=== PATIENT | male | born 1965 | race Hispanic/Latino ===

== ENCOUNTER 2021-12-27 00:27 | Inpatient (IN) ==
[2021-12-27] MEDS ORDERED: oxyCODONE/APAP 5/325MG TABLET PO PRN (23:39)
[2021-12-27] MEDS ORDERED: ONDANSETRON 4 MG/2 ML VIAL IV PRN (23:39)
[2021-12-27] MEDS ORDERED: ACETAMINOPHEN 325 MG TABLET PO PRN (23:40)
[2021-12-27] MEDS ORDERED: LABETALOL 5 MG/ML ML IV PRN (23:41)
[2021-12-28] MEDS ORDERED: ONDANSETRON 4 MG/2 ML VIAL ONE (03:09)
[2021-12-28] MEDS ORDERED: DEXTROSE 5% IV PRN (06:30)
[2021-12-28] MEDS ORDERED: WATER IV PRN (06:30)
[2021-12-28] MEDS ORDERED: VASOPRESSIN IV PRN (06:30)
[2021-12-28 06:32] LABS: Basophils # (Auto) 0.03 K/mcL (0.00-0.30); Basophils % (Auto) 0.3 % (0.0-2.0); Eosinophils # (Auto) 0 K/mcL (0.00-0.70); Eosinophils % (Auto) 0 % (0.0-7.0); Hematocrit 24.5 % (40.1-51.0); Hemoglobin 8.2 g/dL (13.7-17.5); Lymphocytes # (Auto) 0.29 K/mcL (1.50-4.80); Lymphocytes % (Auto) 2.9 % (15.5-49.0); Mean Cell Volume 102.9 fL (80.0-100.0); Mean Corpuscular HGB Conc 33.5 g/dL (31.0-36.0); Mean Platelet Volume 10.5 fL (7.4-10.4); Monocytes # (Auto) 0.22 K/mcL (0.10-0.90); Monocytes % (Auto) 2.2 % (1.0-12.0); Neutrophils % (Auto) 94.2 % (38.0-78.0); Platelet Count 186 K/mcL (140-440); RBC 2.38 M/mcL (4.63-6.08); Red Cell Distribution Width 12.2 % (11.5-14.5); WBC 10.2 K/mcL (4.5-11.0)
--- NOTE | 2021-12-28 06:44 | Nephrology Consult Note ---
HPI Data of Consult Patient: new to practice Consult date: 12/28/21 Requesting physician: Cole Linda Primary Care Provider: Other Provider Consult Narrative Patient Information: Note initiated : 12/28/21 at 6:35 am Service Date, if different from initiated Date: [] Patient: Tyler Harrington 56 y/o M admitted on 12/28/21 for Nausea/Vomiting, mi ssed Chemodialysis. Chief Complaint: [] Chief complaint: SOB Reason for consult: ESRD management cc:: CC: Cole Maddi 56 yr old male who presented to referring ED 12/27/2021 with SOB prior to his scheduled HD treatment. CXR with bilateral infiltrates and some hilar adenopathy. CoViD (+). Given Vanco and pip-mandy as well as 1 dose of paxlovid in ED. Demond Herman spoke to ED MD the patient is comfortable on high flow O2 at 10 L/min with O2 sats >90% whereas he was in the low 70's% on R/A. No Remdesavir, steroids, or MCAb had been given as of 10 pm. Plan to do daily HD today thru Monday while hospital medicine treats CoVID-19 PNA. Constitutional Constitutional: Absent fever(s) EENT Eyes: Present as per HPI Nose, mouth and throat: Absent headache(s) Cardiovascular Cardiovascular: Absent edema or rapid heart rate Respiratory Respiratory: Present as per HPI, dyspnea and dyspnea on exertion; Absent hemoptysis Gastrointestinal Gastrointestinal: Present as per HPI Genitourinary Genitourinary: as per HPI Neurological Neurological: Present as per HPI Psychiatric Psychiatric: Present as per HPI Endocrine Endocrine: Present as per HPI Hematologic/Lymphatic Hematologic/Lymphatic: Present other (anemia of ESRD) PFSH PFSH All Active Problems (Updated 12/28/21 @ 18:56 by Alfred Chowdhury MD) ESRD (end stage renal disease) on dialysis (Chronic) Pneumonia due to SARS-associated coronavirus (Acute) MEDS/ALLERGIES Home Medications and Allergies Home Medications Medication Instructions Recorded Confirmed Type amlodipine 10 mg tablet 1 tab PO QDAY 12/28/21 12/28/21 History atorvastatin 20 mg tablet 1 tab PO QDAY 12/28/21 12/28/21 History benazepril 20 mg tablet 1 tab PO QDAY 12/28/21 12/28/21 History calcium acetate(phosphat bind) 667 2 cap PO TID 12/28/21 12/28/21 History mg capsule hydralazine 100 mg tablet 1 tab PO TID 12/28/21 12/28/21 History metoprolol succinate 100 mg 1 tab PO QDAY 12/28/21 12/28/21 History tablet,extended release 24 hr sevelamer carbonate 800 mg tablet 1 tab PO TID 12/28/21 12/28/21 History Allergies Allergy/AdvReac Type Severity Reaction Status Date / Time No Known Allergies Allergy Verified 12/28/21 04:15 Physical Examination Vital Signs Vital signs: Temp Pulse Resp BP Pulse Ox 36.8 C 72 18 140/61 97 12/28/21 04:02 12/28/21 06:28 12/28/21 06:28 12/28/21 06:01 12/28/21 06:28 General Appearance General appearance: well-developed, well-nourished and chronically ill EENT EENT: ATNC and PERRL Neck Neck: no JVD and no carotid bruit Respiratory Respiratory: rales, course breath sounds and rhonchi Cardiovascular Cardiology: no murmurs, no rub and no gallops Gastrointestinal Gastrointestinal: normoactive bowel sounds, tenderness and no guarding Integumentary Integumentary: no rash Neurologic Neurologic: no focal deficit, no asterixis and CN 3-12 intact Musculoskeletal Musculoskeletal: no deformities, no cyanosis and clubbing Psychiatric Psychiatric: mood/affect appropriate Results Lab Results Result Diagrams: 12/28/21 05:20 12/28/21 05:20 A/P Assessment and plan (1) ESRD (end stage renal disease) on dialysis: Assessment and plan: Plan HD today and tomorrow to get back on MWF Plan: HR todat and then Mon and monday Status: Chronic Comment: looks better and decreased Aa gradient with 4 liter Uf Check ESR, CRP, procal, proBNP and CXR post HD (2) Pneumonia due to SARS-associated coronavirus: Status: Acute Plan Follow government mandated protocol. Narrative A/P Narrative: Looks better after fluid removal. Maybe SARs-CV2 is not major cause of SOB Plan of Treatment: Repeat HD tomorrow Time Spent With Patient Time: Total time spent is greater than 50% in coordination of care (as documented) at patient's floor/unit and/or counseling patient: Total time spent with greater than 50% in coordination of care (as documented) at patient's floor/unit and/or counseling patient:: 50 - 70 minutes Attestation: Patient was seen and evaluated prior to and midway thru his HD treatment.
[2021-12-28 07:18] LABS: ALT/SGPT 14 U/L (<40); AST/SGOT 26 U/L (<40); Albumin 3.1 gm/dL (3.2-5.2); Albumin/Globulin Ratio 0.9 (1.0-2.3); Alkaline Phosphatase 77 U/L (39-117); Bilirubin,Direct 0.4 mg/dL (<0.3); Bilirubin,Total 1.2 mg/dL (0.1-1.0); Blood Urea Nitrogen 81 mg/dL (6-20); Calcium 8.5 mg/dL (8.6-10.4); Carbon Dioxide 27 mmol/L (22-30); Chloride 93 mmol/L (96-108); Globulin 3.3 gm/dL (2.2-3.7); Glomerular Filtration Rate 4; Glucose 189 mg/dL (70-105); Lactate Dehydrogenase 218 U/L (135-225); Phosphorous 2.8 mg/dL (2.5-4.5); Triglycerides 99 mg/dL (<150); Uric Acid 8.7 mg/dL (2.5-8.0)
[2021-12-28 07:46] LABS: Vancomycin,Random 12.3 ug/mL
--- NOTE | 2021-12-28 07:47 | Internal Med History&Physical ---
HPI History of Present Illness Patient information: Note initiated : 12/28/21 at 7:43 am Service Date, if different from initiated Date: [] Patient: Tyler Harrington a 56 y/o M admitted on 12/28/21 for Nausea/Vomiting, missed Chemodialysis. Chief Complaint: [] History of present illness: Mr. Harrington is a 56 year old M Presented to [facility] [place] [facility] ER for shortness of breath. He was found to have oxygen saturations in the low 70s on room air. Chest x-ray with mild bilateral infiltrates. Is found to be COVID-positive. Has some mild abdominal discomfort but no nausea vomiting. No chest pain. Denies fever chills. Has coughing. Patient received paxlovid and dexamethasone at the outside facility Patient also has history of end-stage renal disease and case is discussed with Dr. Chowdhury from the ED. Patient also recently finished a course of antibiotics for suspected bacterial pneumonia. Mild language barrier but sounds like he did get the COVID-vaccine but not the booster. Review of Systems: Pertinent positives as above. Denies headache/f ever/chills/nausea/vomiting/chest or abdominal pain/diarrhea. Remaining 10 point review of system reviewed negative . PFSH PFSH All Active Problems (Updated 12/28/21 @ 06:30 by Alfred Chowdhury MD) Pneumonia due to SARS-associated coronavirus (Acute) ESRD (end stage renal disease) on dialysis (Acute) MEDS/ALLERGIES Home Medications and Allergies Home Medications Medication Instructions Recorded Confirmed Type amlodipine 10 mg tablet 1 tab PO QDAY 12/28/21 12/28/21 History atorvastatin 20 mg tablet 1 tab PO QDAY 12/28/21 12/28/21 History benazepril 20 mg tablet 1 tab PO QDAY 12/28/21 12/28/21 History calcium acetate(phosphat bind) 667 2 cap PO TID 12/28/21 12/28/21 History mg capsule hydralazine 100 mg tablet 1 tab PO TID 12/28/21 12/28/21 History metoprolol succinate 100 mg 1 tab PO QDAY 12/28/21 12/28/21 History tablet,extended release 24 hr sevelamer carbonate 800 mg tablet 1 tab PO TID 12/28/21 12/28/21 History Allergies Allergy/AdvReac Type Severity Reaction Status Date / Time No Known Allergies Allergy Verified 12/28/21 04:15 EXAM Constitutional Vitals: Temp Pulse Resp BP Pulse Ox 98.2 F 72 17 161/68 94 12/28/21 04:02 12/28/21 07:01 12/28/21 07:01 12/28/21 07:01 12/28/21 07:20 Exam: General: Alert, Awake, No acute Distress, obese Eyes/N/T: EOMI, PERRL, Head/Neck: neck supple, normocephalic atraumatic CV: RRR, No murmurs, normal s1/s2 Pulm: rales b/l, no wheezing Abd: soft, nontender, +BS x4 Ext: no clubbing/cyanosis/edema Neuro: Alert, no focal deficits, moves all extremities, CN 2-12 grossly intact, symmetrical strength b/l upper/lower, sensations intact b/l upper/lower Skin: warm/dry DATA Data Completed and Pending Labs: Labs from last 24 hours 12/28/21 12/28/21 12/28/21 06:49 06:48 05:20 WBC RBC Hgb Hct MCV MCH MCHC RDW Plt Count MPV Immature Gran % (Auto) Neut % (Auto) Lymph % (Auto) [place] % (Auto) Eos % (Auto) Baso % (Auto) Lymph # (Auto) [place] # (Auto) Eos # (Auto) Baso # (Auto) Immature Gran # Absolute Neutrophils Sodium 133 Potassium 4.2 Chloride 93 L Carbon Dioxide 27 Anion Gap 13.0 BUN 81 H Creatinine 12.7 H* GFR Calculation 4 Glucose 189 H Uric Acid 8.7 H Calcium 8.5 L Phosphorus 2.8 Magnesium 2.4 Total Bilirubin 1.2 H Direct Bilirubin 0.4 H GGT 44 AST 26 ALT 14 Alkaline Phosphatase 77 Lactate Dehydrogenase 218 C-Reactive Protein 6.80 H Total Protein 6.4 Albumin 3.1 L Globulin 3.3 Albumin/Globulin Ratio 0.9 L Triglycerides 99 Random Vancomycin Pending Hep Bs Antigen Pending Hep Bs Antibody Pending Hep B Core Total Ab Pending 12/28/21 05:20 WBC 10.2 RBC 2.38 L Hgb 8.2 L Hct 24.5 L MCV 102.9 H MCH 34.5 H MCHC 33.5 RDW 12.2 Plt Count 186 MPV 10.5 H Immature Gran % (Auto) 0.4 Neut % (Auto) 94.2 H Lymph % (Auto) 2.9 L [place] % (Auto) 2.2 Eos % (Auto) 0 Baso % (Auto) 0.3 Lymph # (Auto) 0.29 L [place] # (Auto) 0.22 Eos # (Auto) 0 Baso # (Auto) 0.03 Immature Gran # 0.04 Absolute Neutrophils 9.61 H Sodium Potassium Chloride Carbon Dioxide Anion Gap BUN Creatinine GFR Calculation Glucose Uric Acid Calcium Phosphorus Magnesium Total Bilirubin Direct Bilirubin GGT AST ALT Alkaline Phosphatase Lactate Dehydrogenase C-Reactive Protein Total Protein Albumin Globulin Albumin/Globulin Ratio Triglycerides Random Vancomycin Hep Bs Antigen Hep Bs Antibody Hep B Core Total Ab A/P Narrative A/P Narrative: A: *COVID PNA: *Acute hypoxic respiratory failure: 2/2 above -on 9L HFLC *ESRD: *Anemia, chronic *HTN/HLD: *Obesity: bmi 30 P: -Dexa/Rem, Actemra -Wean O2 as able -Proning/mobilization/OOB to chair -f/u crp -HD per Neprho -cont home BP meds -ppx: Heparin Time Spent With Patient Time: Total time spent is greater than 50% in coordination of care (as documented) at patient's floor/unit and/or counseling patient: Total time spent with greater than 50% in coordination of care (as documented) at patient's floor/unit and/or counseling patient:: Greater than 70 minutes
[2021-12-28 08:13] LABS: Hepatitis B Surface Antibody POSITIVE (Negative); Hepatitis B Surface Antigen Negative (Negative)
[2021-12-28] MEDS ORDERED: hydrALAZINE 20 MG/ML VIAL IV PRN (08:49)
[2021-12-28] MEDS: SEVELAMER 800 MG TABLET PO SCH ×3 (09:06→18:29)
[2021-12-28] MEDS: DEXAMETHASONE 4 MG TABLET PO SCH (09:06)
[2021-12-28] MEDS ORDERED: TOCILIZUMAB 600 MG in 0.9 % SODIUM CHLORIDE 70 ML IV ONE (11:00)
[2021-12-28] MEDS: METOPROLOL SUCCINATE 50 MG TAB.XL.24H PO SCH (14:20)
[2021-12-28] MEDS: REMDESIVIR 100 MG in 0.9 % SODIUM CHLORIDE 250 ML IV SCH (14:21)
[2021-12-28] MEDS: amLODIPine 10 MG TABLET PO SCH (14:21)
[2021-12-28] MEDS: CALCIUM ACETATE 667 MG CAPSULE PO SCH ×2 (14:38→18:29)
[2021-12-28] MEDS: hydrALAZINE 25 MG TABLET PO SCH ×2 (15:27→20:39)
[2021-12-28] MEDS: ATORVASTATIN 20 MG TABLET PO SCH (20:39)
[2021-12-29 06:28] LABS: Basophils # (Auto) 0.01 K/mcL (0.00-0.30); Basophils % (Auto) 0.1 % (0.0-2.0); Eosinophils # (Auto) 0 K/mcL (0.00-0.70); Eosinophils % (Auto) 0 % (0.0-7.0); Hematocrit 25.5 % (40.1-51.0); Hemoglobin 8.9 g/dL (13.7-17.5); Lymphocytes # (Auto) 0.48 K/mcL (1.50-4.80); Lymphocytes % (Auto) 3.5 % (15.5-49.0); Mean Cell Volume 100.4 fL (80.0-100.0); Mean Corpuscular HGB Conc 34.9 g/dL (31.0-36.0); Mean Platelet Volume 10.8 fL (7.4-10.4); Monocytes # (Auto) 0.71 K/mcL (0.10-0.90); Monocytes % (Auto) 5.2 % (1.0-12.0); Neutrophils % (Auto) 90.7 % (38.0-78.0); Platelet Count 218 K/mcL (140-440); RBC 2.54 M/mcL (4.63-6.08); Red Cell Distribution Width 11.9 % (11.5-14.5); WBC 13.7 K/mcL (4.5-11.0)
[2021-12-29 07:16] LABS: ALT/SGPT 15 U/L (<40); AST/SGOT 26 U/L (<40); Albumin 3.6 gm/dL (3.2-5.2); Albumin/Globulin Ratio 1.1 (1.0-2.3); Alkaline Phosphatase 78 U/L (39-117); Bilirubin,Direct 0.2 mg/dL (<0.3); Bilirubin,Total 0.8 mg/dL (0.1-1.0); Blood Urea Nitrogen 52 mg/dL (6-20); Calcium 8.6 mg/dL (8.6-10.4); Carbon Dioxide 26 mmol/L (22-30); Chloride 94 mmol/L (96-108); Globulin 3.3 gm/dL (2.2-3.7); Glomerular Filtration Rate 7; Glucose 178 mg/dL (70-105); Lactate Dehydrogenase 224 U/L (135-225); Phosphorous 2.9 mg/dL (2.5-4.5); Triglycerides 95 mg/dL (<150); Uric Acid 4.6 mg/dL (2.5-8.0)
--- NOTE | 2021-12-29 07:26 | Internal Med Progress Note ---
SUBJECTIVE Subjective Patient information: Note initiated : 12/29/21 at 7:22 am Service Date, if different from initiated Date: [] Patient: Tyler Harirngton a 56 y/o M admitted on 12/28/21 for Nausea/Vomiting, missed Chemodialysis. Chief Complaint: [] Interval history: History of present illness: Mr. Harrington is a 56 year old M Presented to [facility] ER for shortness of breath. He was found to have oxygen saturations in the low 70s on room air. Chest x-ray with mild bilateral infiltrates. Is found to be COVID-positive. Has some mild abdominal discomfort but no nausea vomiting. No chest pain. Denies fever chills. Has coughing. Patient received paxlovid and dexamethasone at the outside facility Patient also has history of end-stage renal disease and case is discussed with Dr. Chowdhury from the ED. Patient also recently finished a course of antibiotics for suspected bacterial pneumonia. Mild language barrier but sounds like he did get the COVID-vaccine but not the booster. 12/29 Patient seems to be doing well today. Nurse just placed on room air. Getting dialysis today. Does have occasional cough but not shortness of breath. Review of Systems: denies headache/fever/chills/nausea/vomiting/chest or abdominal pain/diarrhea. Otherwise see above. Constitutional Vitals: Vital Signs Temp Pulse Resp BP Pulse Ox 99.8 F H 65 21 127/63 95 12/29/21 00:01 12/29/21 06:00 12/29/21 06:00 12/29/21 06:00 12/29/21 06:00 Period Temp Pulse Resp BP Sys/Saavedra Pulse Ox Last 24 Hr 98.5 F-99.8 F 65-85 15-28 127-161/55-99 92-99 Intake and Output 12/28/21 12/29/21 12/29/21 21:59 05:59 13:59 Intake Total 350 200 Output Total 400 Balance 350 -200 Weight 80.422 kg Intake & Output: Intake & Output 12/28/21 12/29/21 12/29/21 21:59 05:59 13:59 Intake Total 350 200 Output Total 400 Balance 350 -200 Weight 80.422 kg Intake: IV 350 Veklury 100 mg In Sodium 250 Chloride 0.9% 250 ml @ 500 mls/ hr IV Q24H DELANO Rx#:[id number] Actemra 600 mg In Sodium 100 Chloride 0.9% 70 ml @ 100 mls/ hr IV ONCE ONE Rx#:[id number] Oral 200 Output: Void Amount 400 Other: Meal Dinner Percent of Meal Consumed 100% Urine Appearance Clear Urine Color Pale Stool Size Moderate Stool Color Brown Stool Consistency Liquid # Bowel Movements 1 Exam: General: Alert, Awake, No acute Distress, obese Eyes/N/T: EOMI, , Head/Neck: neck supple, CV: RRR, No murmurs, Pulm: minimal rales b/l, no wheezing Abd: soft, nontender, +BS x4 Ext: no clubbing/cyanosis/edema Neuro: Alert, no focal deficits, moves all extremities, Skin: warm/dry OBJ DATA Labs CBC & Chem 7: 12/29/21 05:08 12/29/21 05:08 Labs: Abnormal Lab Results 12/29/21 12/29/21 12/29/21 05:08 05:08 05:08 WBC RBC Hgb Hct MCV MCH MPV Neut % (Auto) Lymph % (Auto) Lymph # (Auto) Immature Gran # Absolute Neutrophils ESR 27 H Chloride BUN Creatinine Glucose Uric Acid Calcium Total Bilirubin Direct Bilirubin C-Reactive Protein NT-Pro-B Natriuret Pep 66763.0 H Albumin Albumin/Globulin Ratio Procalcitonin 8.89 H Hep Bs Antibody 12/29/21 12/29/21 12/28/21 05:08 05:08 06:48 WBC 13.7 H RBC 2.54 L Hgb 8.9 L Hct 25.5 L MCV 100.4 H MCH 35.0 H MPV 10.8 H Neut % (Auto) 90.7 H Lymph % (Auto) 3.5 L Lymph # (Auto) 0.48 L Immature Gran # 0.07 H Absolute Neutrophils 12.47 H ESR Chloride 94 L BUN 52 H Creatinine 7.4 H* Glucose 178 H Uric Acid Calcium Total Bilirubin Direct Bilirubin C-Reactive Protein 4.20 H NT-Pro-B Natriuret Pep Albumin Albumin/Globulin Ratio Procalcitonin Hep Bs Antibody Positive A 12/28/21 12/28/21 05:20 05:20 WBC RBC 2.38 L Hgb 8.2 L Hct 24.5 L MCV 102.9 H MCH 34.5 H MPV 10.5 H Neut % (Auto) 94.2 H Lymph % (Auto) 2.9 L Lymph # (Auto) 0.29 L Immature Gran # Absolute Neutrophils 9.61 H ESR Chloride 93 L BUN 81 H Creatinine 12.7 H* Glucose 189 H Uric Acid 8.7 H Calcium 8.5 L Total Bilirubin 1.2 H Direct Bilirubin 0.4 H C-Reactive Protein 6.80 H NT-Pro-B Natriuret Pep Albumin 3.1 L Albumin/Globulin Ratio 0.9 L Procalcitonin Hep Bs Antibody Meds: Medications Acetaminophen (Acetaminophen 325 Mg Tablet) 650 mg PO Q4-6HP PRN; Protocol PRN Reason: Per Pain Protocol Amlodipine Besylate (Amlodipine 10 Mg Tablet) 10 mg PO QDAY [facility] Last Admin: 12/28/21 14:21 Dose: 10 mg Documented by: Atorvastatin Calcium (Atorvastatin 20 Mg Tablet) 20 mg PO HS [facility] Last Admin: 12/28/21 20:39 Dose: 20 mg Documented by: Calcium Acetate (Calcium Acetate 667 Mg Capsule) 1,334 mg PO TIDCC [facility] Last Admin: 12/28/21 18:29 Dose: 1,334 mg Documented by: Dexamethasone (Dexamethasone 4 Mg Tablet) 6 mg PO DAILY [facility] Last Admin: 12/28/21 09:06 Dose: 6 mg Documented by: Hydralazine HCl (Hydralazine 25 Mg Tablet) 100 mg PO TID [facility] Last Admin: 12/28/21 20:39 Dose: 100 mg Documented by: Hydralazine HCl (Hydralazine 20 Mg/Ml Vial) 0 mg IV Q2HP PRN PRN Reason: Hypertension Vasopressin 10 unit/ Dextrose 50.5 mls @ 12 mls/hr IV DAILYP PRN; Protocol PRN Reason: DIALYSIS RELATED HYPOTENSION REMDESIVIR 100 mg/ Sodium (Chloride) 250 mls @ 500 mls/hr IV Q24H [facility] Stop: 12/31/21 10:29 Last Infusion: 12/28/21 17:40 Dose: Infused Documented by: Labetalol HCl (Labetalol 5 Mg/Ml Ml) 0 mg IV Q3H PRN PRN Reason: Hypertension Lisinopril (Lisinopril 20 Mg Tablet) 20 mg PO DAILY [facility] Metoprolol Succinate (Metoprolol Succinate 50 Mg Tab.Xl.24h) 100 mg PO DAILY [facility] Last Admin: 12/28/21 14:20 Dose: 100 mg Documented by: Ondansetron HCl (Ondansetron 4 Mg/2 Ml Vial) 4 mg IV Q4HP PRN PRN Reason: Nausea And Vomiting Last Admin: 12/28/21 03:10 Dose: 4 mg Documented by: Oxycodone/Acetaminophen (Oxycodone/Apap 5/325mg Tablet) 1 tab PO Q4HP PRN; Protocol PRN Reason: Per Pain Protocol Sevelamer Carbonate (Sevelamer 800 Mg Tablet) 800 mg PO TIDCC [facility] Last Admin: 12/28/21 18:29 Dose: 800 mg Documented by: A/P Narrative A/P Narrative: A: *COVID PNA: *Acute hypoxic respiratory failure: 2/2 above -turned to room air today *ESRD: *Anemia, chronic *HTN/HLD: *Obesity: bmi 30 P: -Dexa/Rem, s/p Actemra -Empiric abx, f/u wbc/pct -Wean O2 as able -Proning/mobilization/OOB to chair -f/u crp -HD per Nephro -cont home BP meds -ppx: Heparin Plan of Treatment: Repeat HD tomorrow Time Spent With Patient Time: Total time spent is greater than 50% in coordination of care (as documented) at patient's floor/unit and/or counseling patient:
[2021-12-29] MEDS: hydrALAZINE 25 MG TABLET PO SCH ×3 (07:54→20:47)
[2021-12-29] MEDS: LISINOPRIL 20 MG TABLET PO SCH (07:54)
[2021-12-29] MEDS: METOPROLOL SUCCINATE 50 MG TAB.XL.24H PO SCH (07:54)
[2021-12-29] MEDS: DEXAMETHASONE 4 MG TABLET PO SCH (07:54)
[2021-12-29] MEDS: CALCIUM ACETATE 667 MG CAPSULE PO SCH ×3 (07:54→17:22)
[2021-12-29] MEDS: SEVELAMER 800 MG TABLET PO SCH ×3 (07:54→17:23)
[2021-12-29] MEDS: amLODIPine 10 MG TABLET PO SCH (07:54)
--- NOTE | 2021-12-29 07:54 | Nephrology Progress Note ---
SUBJECTIVE Subjective Patient information: Note initiated : 12/29/21 at 7:51 am Service Date, if different from initiated Date: [] Patient: Tyler Harrington 56 y/o M admitted on 12/28/21 for Nausea/Vomiting, missed Chemodialysis. Chief Complaint: [SOB] Principal diagnosis: Hypoxemic resp failure in HD pt with SARs-CV2 Interval history: HD with 4 liters removed yesterday which resulted in marked decline in O2 requirements post procedure. proBNP and inflammatory biomarkers elevated Low dose corticosteroids, Remdesiver (06/29), Tocilizumab x 1 (IL-6 antagonist) given along with paxlovid at referring hosp Vital Signs Temp Pulse Resp BP Pulse Ox 12/29/21 07:00 63 22 135/59 95 12/29/21 06:00 65 21 127/63 95 12/29/21 05:01 65 17 145/66 97 12/29/21 04:02 67 18 133/56 96 12/29/21 03:01 67 16 143/81 95 12/29/21 02:01 67 28 H 146/63 97 12/29/21 01:47 99 12/29/21 01:46 68 15 96 12/29/21 01:02 85 15 150/71 95 12/29/21 00:08 22 12/29/21 00:01 37.7 C H 71 18 149/65 95 12/28/21 23:01 37.7 C H 73 22 144/55 96 12/28/21 22:01 74 22 145/66 94 12/28/21 21:01 80 17 157/99 98 12/28/21 20:02 37.6 C H 78 22 139/55 94 12/28/21 19:02 37.6 C H 81 19 150/60 93 12/28/21 18:00 72 19 140/62 94 12/28/21 17:01 70 18 146/61 97 12/28/21 16:00 36.9 C 71 18 149/65 96 12/28/21 15:26 77 20 158/68 94 12/28/21 14:01 78 23 H 155/64 96 12/28/21 14:00 92 12/28/21 13:44 74 22 156/67 95 12/28/21 13:38 72 17 147/64 96 12/28/21 13:34 37.0 C 72 147/64 12/28/21 13:31 72 19 146/67 95 12/28/21 13:27 73 146/67 12/28/21 13:16 72 15 140/65 95 12/28/21 13:13 72 140/65 12/28/21 13:00 72 20 149/65 95 12/28/21 12:45 72 17 145/68 94 12/28/21 12:43 71 145/68 12/28/21 12:30 71 18 147/62 94 12/28/21 12:28 71 147/62 12/28/21 12:15 71 18 152/66 95 12/28/21 12:14 70 18 95 12/28/21 12:13 71 152/66 12/28/21 12:01 37.1 C 69 18 154/63 96 12/28/21 11:58 71 154/63 12/28/21 11:47 72 17 95 12/28/21 11:45 72 20 157/66 95 12/28/21 11:32 75 19 151/69 95 12/28/21 11:28 73 151/69 12/28/21 11:16 67 18 142/65 96 12/28/21 11:14 68 142/65 12/28/21 11:03 70 149/68 12/28/21 11:00 70 22 149/68 97 12/28/21 10:45 71 22 142/68 98 12/28/21 10:43 70 142/68 12/28/21 10:30 71 17 142/61 98 12/28/21 10:28 71 142/61 12/28/21 10:15 70 22 140/62 96 12/28/21 10:11 70 21 140/64 96 12/28/21 10:05 37.1 C 71 140/64 12/28/21 10:01 72 18 136/55 94 12/28/21 09:58 73 18 133/79 96 12/28/21 09:02 75 18 149/66 93 12/28/21 08:04 37.3 C H 79 19 161/77 93 Intake and Output 12/28/21 12/29/21 12/29/21 21:59 05:59 13:59 Intake Total 350 200 Output Total 400 Balance 350 -200 Intake: IV 350 Veklury 100 mg In Sodium 250 Chloride 0.9% 250 ml @ 500 mls/ hr IV Q24H [facility] Rx#:[id number] Actemra 600 mg In Sodium 100 Chloride 0.9% 70 ml @ 100 mls/ hr IV ONCE ONE Rx#:[id number] Oral 200 Output: Void Amount 400 Other: Meal Dinner Percent of Meal Consumed 100% Urine Appearance Clear Urine Color Pale Stool Size Moderate Stool Color Brown Stool Consistency Liquid # Bowel Movements 1 Weight 80.422 kg Current Medications Acetaminophen (Acetaminophen 325 Mg Tablet) 650 mg PO Q4-6HP PRN; Protocol PRN Reason: Per Pain Protocol Amlodipine Besylate (Amlodipine 10 Mg Tablet) 10 mg PO QDAY [facility] Last Admin: 12/29/21 07:54 Dose: 10 mg Documented by: Atorvastatin Calcium (Atorvastatin 20 Mg Tablet) 20 mg PO HS [facility] Last Admin: 12/28/21 20:39 Dose: 20 mg Documented by: Calcium Acetate (Calcium Acetate 667 Mg Capsule) 1,334 mg PO TIDCC [facility] Last Admin: 12/29/21 07:54 Dose: 1,334 mg Documented by: Dexamethasone (Dexamethasone 4 Mg Tablet) 6 mg PO DAILY [facility] Last Admin: 12/29/21 07:54 Dose: 6 mg Documented by: Hydralazine HCl (Hydralazine 25 Mg Tablet) 100 mg PO TID [facility] Last Admin: 12/29/21 07:54 Dose: 100 mg Documented by: Hydralazine HCl (Hydralazine 20 Mg/Ml Vial) 0 mg IV Q2HP PRN PRN Reason: Hypertension Vasopressin 10 unit/ Dextrose 50.5 mls @ 12 mls/hr IV DAILYP PRN; Protocol PRN Reason: DIALYSIS RELATED HYPOTENSION REMDESIVIR 100 mg/ Sodium (Chloride) 250 mls @ 500 mls/hr IV Q24H [facility] Stop: 12/31/21 10:29 Last Infusion: 12/28/21 17:40 Dose: Infused Documented by: Ceftriaxone Sodium 2 gm/ (Dextrose) 50 mls @ 100 mls/hr IV Q24H [facility]; Protocol Azithromycin 500 mg/ Dextrose 250 mls @ 250 mls/hr IV Q24H [facility]; Protocol Stop: 12/31/21 10:59 Labetalol HCl (Labetalol 5 Mg/Ml Ml) 0 mg IV Q3H PRN PRN Reason: Hypertension Lisinopril (Lisinopril 20 Mg Tablet) 20 mg PO DAILY [facility] Last Admin: 12/29/21 07:54 Dose: 20 mg Documented by: Metoprolol Succinate (Metoprolol Succinate 50 Mg Tab.Xl.24h) 100 mg PO DAILY [facility] Last Admin: 12/29/21 07:54 Dose: 100 mg Documented by: Ondansetron HCl (Ondansetron 4 Mg/2 Ml Vial) 4 mg IV Q4HP PRN PRN Reason: Nausea And Vomiting Last Admin: 12/28/21 03:10 Dose: 4 mg Documented by: Oxycodone/Acetaminophen (Oxycodone/Apap 5/325mg Tablet) 1 tab PO Q4HP PRN; Protocol PRN Reason: Per Pain Protocol Sevelamer Carbonate (Sevelamer 800 Mg Tablet) 800 mg PO TIDCC [facility] Last Admin: 12/29/21 07:54 Dose: 800 mg Documented by: December 28, 2021 Pertinent ROS: Less SOB, lying flat, O2 sat >95 % on 2 liter N/c Additional PMFSH (Level 3 Only): N/A Constitutional Vitals: Vital Signs Temp Pulse Resp BP Pulse Ox 37.7 C H 63 22 135/59 95 12/29/21 00:01 12/29/21 07:00 12/29/21 07:00 12/29/21 07:00 12/29/21 07:00 Period Temp Pulse Resp BP Sys/Saavedra Pulse Ox Last 24 Hr 36.9 C-37.7 C 63-85 15-28 127-161/55-99 92-99 Intake and Output 12/28/21 12/29/21 12/29/21 21:59 05:59 13:59 Intake Total 350 200 Output Total 400 Balance 350 -200 Weight 80.422 kg Intake & Output: Intake & Output 12/28/21 12/29/21 12/29/21 21:59 05:59 13:59 Intake Total 350 200 Output Total 400 Balance 350 -200 Weight 80.422 kg Intake: IV 350 Veklury 100 mg In Sodium 250 Chloride 0.9% 250 ml @ 500 mls/ hr IV Q24H [facility] Rx#:[id number] Actemra 600 mg In Sodium 100 Chloride 0.9% 70 ml @ 100 mls/ hr IV ONCE ONE Rx#:[id number] Oral 200 Output: Void Amount 400 Other: Meal Dinner Percent of Meal Consumed 100% Urine Appearance Clear Urine Color Pale Stool Size Moderate Stool Color Brown Stool Consistency Liquid # Bowel Movements 1 General appearance: average body habitus, cooperative and no acute distress Head Head exam: Present normal inspection Eye Eye exam: Present EOMI Pupils: Present PERRL ENT ENT exam: Present mucous membranes moist Neck Neck exam: Present normal inspection Respiratory Respiratory exam: Present rales (Improved bilateral bases); Absent accessory muscle use Cardiovascular Cardiovascular exam: Present normal rate and rhythm, +S1, +S2 and systolic murmur (II/ HSM); Absent JVD GI/Abdominal GI/Abdominal exam: Present soft and diminished bowel sounds Extremities Exam Extremities exam: Absent pedal edema or tenderness Neurological Exam Neurological exam: Present alert, CN II-XII intact and oriented X3 Psychiatric Psychiatric exam: Present normal affect and normal mood Skin Skin exam: Present dry A/P Assessment and plan (1) ESRD (end stage renal disease) on dialysis: Status: Chronic Comment: looks better and decreased Aa gradient with 4 liter Uf Check ESR, CRP, procal, proBNP and CXR post HD (2) Pneumonia due to SARS-associated coronavirus: Status: Acute Comment: Given the rapidity of his improvement I think this is a fluid overload issue and not an infectious issue. proBNP was elevated 40 fold while his inflammatory biomarkers were only elevated 5-10 fold. Plan As outlined below Narrative A/P Narrative: Doing much better than I am used to seeing in a dialysis patient with COVID- pneumonia. This calls into question what is causing his abnormal chest x-ray. My suspicion this is more fluid related and he does have atrial regurgitation so it is possible this is fluid overload/congestive heart failure and not COVID- pneumonia. Repeat chest x-ray after dialysis Obtain echocardiogram Is probably related lowered 2 kg yesterday, and will further challenge his dry weight today. His chest x-ray looks good, and his echo is reasonable and I would plan on discharging him with his neck scheduled dialysis at his home unit on Friday December 31, 2021. Time Spent With Patient Time: Total time spent is greater than 50% in coordination of care (as documented) at patient's floor/unit and/or counseling patient: Total time spent with greater than 50% in coordination of care (as documented) at patient's floor/unit and/or counseling patient:: 50 - 70 minutes Attestation: Patient was seen at the initiation of dialysis, data reviewed, care discussed with nursing and hospital medicine
--- NOTE | 2021-12-29 08:06 | XRay Report ---
INDICATION: f/u covid pna TECHNIQUE: AP portable semierect upright chest x-ray COMPARISON: None FINDINGS: Lungs:No pulmonary parenchymal infiltrates. No focal abnormality Heart, vascular:No significant cardiomegaly. Pulmonary vascularity is normal. No pulmonary edema or pulmonary congestion Mediastinum, allyson:No mediastinal widening. No hilar mass Pleura:No pleural fluid. No pleural-based mass or calcification Skeletal:Negative. IMPRESSION: Negative AP chest suture Interpreted and Authenticated by: Kleber Hernandez 12/29/21
--- NOTE | 2021-12-29 11:04 | Discharge Summary ---
Discharge Provider Provider IMPORTANT FOLLOW-UP INFORMATION FOR PCP: Patient information: Note initiated : 12/29/21 at 11:02 am Service Date, if different from initiated Date: [] Patient: Tyler Harrington 56 y/o M admitted on 12/28/21 for Nausea/Vomiting, missed Chemodialysis. Chief Complaint: [] Date of admission: 12/28/21 02:17 Discharge date: 12/30/21 Primary care physician: Other Provider COURSE Hospital Course Hospital course: History of present illness: Mr. Harrington is a 56 year old M Presented to [facility] ER for shortness of breath. He was found to have oxygen saturations in the low 70s on room air. Chest x-ray with mild bilateral infiltrates. Is found to be COVID-positive. Has some mild abdominal discomfort but no nausea vomiting. No chest pain. Denies fever chills. Has coughing. Patient received paxlovid and dexamethasone at the outside facility Patient also has history of end-stage renal disease and case is discussed with Dr. Chowdhury from the ED. Patient also recently finished a course of antibiotics for suspected bacterial pneumonia. Mild language barrier but sounds like he did get the COVID-vaccine but not the booster. 7/ Patient seems to be doing well today. Nurse just placed on room air. Getting dialysis today. Does have occasional cough but not shortness of breath. 12/30 No overnight event or new complaints. Patient stable for discharge. A: *Acute hypoxic respiratory failure: 2/2 covid vs fluid overload -turned to room air today, f/u cxr unimpressive -perhaps this is more related to volume overload than covid pna given clinical course > NRB @outside facility yesterday and room air today *COVID: *ESRD: *Anemia, chronic *HTN/HLD: *Obesity: bmi 30 Discharge diagnosis: Acute hypoxic respite failure likely volume overload vs ?covid pna Secondary discharge diagnosis: End-stage renal disease volume overload chronic anemia obesity Time Spent with Patient Time attestation: Total time spent providing and/or coordinating discharge services: Time spent: Greater than 30 minutes EXAM Constitutional Vitals: Temp Pulse Resp BP Pulse Ox 99.0 F 67 15 127/55 95 12/29/21 08:01 12/29/21 10:58 12/29/21 10:57 12/29/21 10:58 12/29/21 10:57 Discharge Data Data Completed and Pending Labs on day of discharge: Labs from last 24 hours 12/29/21 12/29/21 12/29/21 05:08 05:08 05:08 WBC RBC Hgb Hct MCV MCH MCHC RDW Plt Count MPV Immature Gran % (Auto) Neut % (Auto) Lymph % (Auto) [place] % (Auto) Eos % (Auto) Baso % (Auto) Lymph # (Auto) [place] # (Auto) Eos # (Auto) Baso # (Auto) Immature Gran # Absolute Neutrophils ESR 27 H Sodium Potassium Chloride Carbon Dioxide Anion Gap BUN Creatinine GFR Calculation Glucose Uric Acid Calcium Phosphorus Magnesium Total Bilirubin Direct Bilirubin GGT AST ALT Alkaline Phosphatase Lactate Dehydrogenase C-Reactive Protein NT-Pro-B Natriuret Pep 78600.0 H Total Protein Albumin Globulin Albumin/Globulin Ratio Triglycerides Procalcitonin 8.89 H 12/29/21 12/29/21 05:08 05:08 WBC 13.7 H RBC 2.54 L Hgb 8.9 L Hct 25.5 L MCV 100.4 H MCH 35.0 H MCHC 34.9 RDW 11.9 Plt Count 218 MPV 10.8 H Immature Gran % (Auto) 0.5 Neut % (Auto) 90.7 H Lymph % (Auto) 3.5 L [place] % (Auto) 5.2 Eos % (Auto) 0 Baso % (Auto) 0.1 Lymph # (Auto) 0.48 L [place] # (Auto) 0.71 Eos # (Auto) 0 Baso # (Auto) 0.01 Immature Gran # 0.07 H Absolute Neutrophils 12.47 H ESR Sodium 134 Potassium 4.2 Chloride 94 L Carbon Dioxide 26 Anion Gap 14.0 BUN 52 H Creatinine 7.4 H* GFR Calculation 7 Glucose 178 H Uric Acid 4.6 Calcium 8.6 Phosphorus 2.9 Magnesium 2.2 Total Bilirubin 0.8 Direct Bilirubin 0.2 GGT 42 AST 26 ALT 15 Alkaline Phosphatase 78 Lactate Dehydrogenase 224 C-Reactive Protein 4.20 H NT-Pro-B Natriuret Pep Total Protein 6.9 Albumin 3.6 Globulin 3.3 Albumin/Globulin Ratio 1.1 Triglycerides 95 Procalcitonin Discharge Plan Patient/Caregiver Discharge Instructions Activity: increase activity as tolerated Diet: Renal Instructions: COVID-19, Fluid Restriction (GEN) Activity Restrictions/Additional Instructions: Home dialysis center has made arrangements for you to dialyze at [facility] [address] [place] [address]. The next available dialysis time for the patient is MONDAY at 10:30 in [place]. Increase activity as tolerated, continue with a renal diet. Follow up with your primary care physician as scheduled. There were no changes made to your current medications. This discharge packet is provided to you to help keep you informed about your care. We want to ensure you get everything you need when you go home. You will also be receiving a call from us in a few days to follow up with you and see how you are doing since your discharge. This gives us a chance to listen to any concerns you maybe experiencing since you were discharged or any additional needs you may have, as well as providing us feedback on your care experience. We strive to always provide excellent care and thank you for your feedback and for choosing [facility]. Prescriptions: Continued atorvastatin 20 mg tablet 1 tab PO QDAY 0RF metoprolol succinate 100 mg tablet extended release 24 hr 1 tab PO QDAY 0RF amlodipine 10 mg tablet 1 tab PO QDAY 0RF hydralazine 100 mg tablet 1 tab PO TID 0RF benazepril 20 mg tablet 1 tab PO QDAY 0RF calcium acetate(phosphat bind) 667 mg capsule 2 cap PO TID 0RF sevelamer carbonate 800 mg tablet 1 tab PO TID 0RF Follow Up Plan Follow up with: Shabnam Bolanos [Other] - 01/11/22 9:00 am Patient Disposition: Home, Self-Care Plan of Treatment: Home with follow up at [facility] [address] [phone] fax. Overall status at discharge: patient is progressing back to baseline Discharge Orders: Discharge Order (Routine); Ordered 12/30/21 Ordered By: Cole Linda
[2021-12-29] MEDS: cefTRIAXone 2 GM in DEXTROSE 5% IN WATER 50 ML IV SCH (11:06)
[2021-12-29] MEDS: REMDESIVIR 100 MG in 0.9 % SODIUM CHLORIDE 250 ML IV SCH (11:07)
[2021-12-29] MEDS: AZITHROMYCIN 500 MG in DEXTROSE 5% IN WATER 250 ML IV SCH (11:07)
[2021-12-29] MEDS: HEPARIN 5,000 UNIT/ML VIAL SQ SCH ×2 (11:14→20:47)
--- NOTE | 2021-12-29 15:57 | XRay Report ---
INDICATION: Follow up bilateral pul infiltrates post HD TECHNIQUE: AP portable semiupright chest x-ray COMPARISON: Previous chest x-ray dated 12/29/2021 FINDINGS: Lungs:No parenchymal consolidation. No focal mass. Heart, vascular:There is cardiomegaly. Vascularity is prominent. There is peribronchial thickening which may be interstitial pulmonary edema. Interstitial pneumonia is less likely. Clinical correlation and follow-up radiograph is recommended. No evidence for alveolar edema. Mediastinum, allyson:No mediastinal widening. No hilar mass Pleura:No pleural fluid. No pleural-based mass or calcification Skeletal:Negative. IMPRESSION: 1. Cardiomegaly 2. Findings consistent with pulmonary congestion and probable interstitial pulmonary edema Interpreted and Authenticated by: Kleber Hernandez 12/29/21
[2021-12-29] MEDS: ATORVASTATIN 20 MG TABLET PO SCH (20:47)
[2021-12-30 06:48] LABS: Hematocrit 27.5 % (40.1-51.0); Hemoglobin 9.4 g/dL (13.7-17.5); Mean Cell Volume 100.4 fL (80.0-100.0); Mean Corpuscular HGB Conc 34.2 g/dL (31.0-36.0); Mean Platelet Volume 10.8 fL (7.4-10.4); Platelet Count 270 K/mcL (140-440); RBC 2.74 M/mcL (4.63-6.08); Red Cell Distribution Width 11.9 % (11.5-14.5); WBC 13.3 K/mcL (4.5-11.0)
[2021-12-30 06:58] LABS: Blood Urea Nitrogen 56 mg/dL (6-20); Calcium 8.4 mg/dL (8.6-10.4); Carbon Dioxide 27 mmol/L (22-30); Chloride 92 mmol/L (96-108); Glomerular Filtration Rate 10; Glucose 180 mg/dL (70-105)
[2021-12-30 07:39] LABS: Band Neutrophils % 1 % (0-10); Lymphocytes % 1 % (15-49); Macrocytosis 1+ (None Seen); Monocytes % (Manual) 2 % (1-12); Platelet Estimate NORMAL (Normal); RBC Morphology ABNORMAL (Normal); Reactive Lymphocytes 2 % (0-2); Segmented Neutrophils % 94 % (38-78); Toxic Granulation OCC (None Seen)
--- NOTE | 2021-12-30 07:53 | Internal Med Progress Note ---
SUBJECTIVE Subjective Patient information: Note initiated : 12/30/21 at 7:49 am Service Date, if different from initiated Date: [] Patient: Tyler Harrington a 56 y/o M admitted on 12/28/21 for Nausea/Vomiting, missed Chemodialysis. Chief Complaint: [] Principal diagnosis: Hypoxemic resp failure in HD pt with SARs-CV2 Interval history: History of present illness: Mr. Harrington is a 56 year old M Presented to [place] ER for shortness of breath. He was found to have oxygen saturations in the low 70s on room air. Chest x-ray with mild bilateral infiltrates. Is found to be COVID-positive. Has some mild abdominal discomfort but no nausea vomiting. No chest pain. Denies fever chills. Has coughing. Patient received paxlovid and dexamethasone at the outside facility Patient also has history of end-stage renal disease and case is discussed with Dr. Chowdhury from the ED. Patient also recently finished a course of antibiotics for suspected bacterial pneumonia. Mild language barrier but sounds like he did get the COVID-vaccine but not the booster. 12/29 Patient seems to be doing well today. Nurse just placed on room air. Getting dialysis today. Does have occasional cough but not shortness of breath. Review of Systems: denies headache/fever/chills/nausea/vomiting/chest or abdominal pain/diarrhea. Otherwise see above. Constitutional Vitals: Vital Signs Temp Pulse Resp BP Pulse Ox 99.0 F 68 18 138/65 95 12/30/21 05:43 12/30/21 05:43 12/30/21 05:43 12/30/21 05:43 12/30/21 05:43 Period Temp Pulse Resp BP Sys/Saavedra Pulse Ox Last 24 Hr 98.4 F-99.4 F 58-72 12-23 107-138/45-67 88-98 Intake and Output 12/29/21 12/30/21 12/30/21 21:59 05:59 13:59 Intake Total 820 480 Output Total 75 Balance 820 405 Weight 78.109 kg Intake & Output: Intake & Output 12/29/21 12/30/21 12/30/21 21:59 05:59 13:59 Intake Total 820 480 Output Total 75 Balance 820 405 Weight 78.109 kg Intake: IV 250 Zithromax 500 mg In Dextrose 5% 250 in Water 250 ml @ 250 mls/hr IV Q24H [facility] Rx#:[id number] Oral 570 480 Output: Void Amount 75 Other: Meal snack Percent of Meal Consumed 100% Urine Appearance Clear Urine Color Dark Yellow Exam: General: Alert, Awake, No acute Distress, obese Eyes/N/T: EOMI, , Head/Neck: neck supple, CV: RRR, No murmurs, Pulm: minimal rales b/l, no wheezing Abd: soft, nontender, +BS x4 Ext: no clubbing/cyanosis/edema Neuro: Alert, no focal deficits, moves all extremities, Skin: warm/dry OBJ DATA Labs CBC & Chem 7: 12/30/21 05:15 12/30/21 05:15 Labs: Abnormal Lab Results 12/30/21 12/30/21 12/29/21 05:15 05:15 05:08 WBC 13.3 H RBC 2.74 L Hgb 9.4 L Hct 27.5 L MCV 100.4 H MCH 34.3 H MPV 10.8 H Neut % (Auto) Lymph % (Auto) Lymph # (Auto) Seg Neutrophils % 94 H Lymphocytes % 1 L Immature Gran # Absolute Neutrophils Toxic Granulation Occ A RBC Morphology Abnormal A Macrocytosis 1+ A ESR Chloride 92 L BUN 56 H Creatinine 5.7 H* Glucose 180 H Uric Acid Calcium 8.4 L Total Bilirubin Direct Bilirubin C-Reactive Protein 2.30 H NT-Pro-B Natriuret Pep Albumin Albumin/Globulin Ratio Procalcitonin 8.89 H Hep Bs Antibody 12/29/21 12/29/21 12/29/21 05:08 05:08 05:08 WBC RBC Hgb Hct MCV MCH MPV Neut % (Auto) Lymph % (Auto) Lymph # (Auto) Seg Neutrophils % Lymphocytes % Immature Gran # Absolute Neutrophils Toxic Granulation RBC Morphology Macrocytosis ESR 27 H Chloride 94 L BUN 52 H Creatinine 7.4 H* Glucose 178 H Uric Acid Calcium Total Bilirubin Direct Bilirubin C-Reactive Protein 4.20 H NT-Pro-B Natriuret Pep 86612.0 H Albumin Albumin/Globulin Ratio Procalcitonin Hep Bs Antibody 12/29/21 12/28/21 12/28/21 05:08 06:48 05:20 WBC 13.7 H RBC 2.54 L Hgb 8.9 L Hct 25.5 L MCV 100.4 H MCH 35.0 H MPV 10.8 H Neut % (Auto) 90.7 H Lymph % (Auto) 3.5 L Lymph # (Auto) 0.48 L Seg Neutrophils % Lymphocytes % Immature Gran # 0.07 H Absolute Neutrophils 12.47 H Toxic Granulation RBC Morphology Macrocytosis ESR Chloride 93 L BUN 81 H Creatinine 12.7 H* Glucose 189 H Uric Acid 8.7 H Calcium 8.5 L Total Bilirubin 1.2 H Direct Bilirubin 0.4 H C-Reactive Protein 6.80 H NT-Pro-B Natriuret Pep Albumin 3.1 L Albumin/Globulin Ratio 0.9 L Procalcitonin Hep Bs Antibody Positive A 12/28/21 05:20 WBC RBC 2.38 L Hgb 8.2 L Hct 24.5 L MCV 102.9 H MCH 34.5 H MPV 10.5 H Neut % (Auto) 94.2 H Lymph % (Auto) 2.9 L Lymph # (Auto) 0.29 L Seg Neutrophils % Lymphocytes % Immature Gran # Absolute Neutrophils 9.61 H Toxic Granulation RBC Morphology Macrocytosis ESR Chloride BUN Creatinine Glucose Uric Acid Calcium Total Bilirubin Direct Bilirubin C-Reactive Protein NT-Pro-B Natriuret Pep Albumin Albumin/Globulin Ratio Procalcitonin Hep Bs Antibody Meds: Medications Acetaminophen (Acetaminophen 325 Mg Tablet) 650 mg PO Q4-6HP PRN; Protocol PRN Reason: Per Pain Protocol Amlodipine Besylate (Amlodipine 10 Mg Tablet) 10 mg PO QDAY [facility] Last Admin: 12/29/21 07:54 Dose: 10 mg Documented by: Atorvastatin Calcium (Atorvastatin 20 Mg Tablet) 20 mg PO [facility] Last Admin: 12/29/21 20:47 Dose: 20 mg Documented by: Calcium Acetate (Calcium Acetate 667 Mg Capsule) 1,334 mg PO TIDCC [facility] Last Admin: 12/29/21 17:22 Dose: 1,334 mg Documented by: Dexamethasone (Dexamethasone 4 Mg Tablet) 6 mg PO DAILY [facility] Last Admin: 12/29/21 07:54 Dose: 6 mg Documented by: Heparin Sodium (Porcine) (Heparin 5,000 Unit/Ml Vial) 5,000 unit SQ Q12 [facility] Last Admin: 12/29/21 20:47 Dose: 5,000 unit Documented by: Hydralazine HCl (Hydralazine 25 Mg Tablet) 100 mg PO TID [facility] Last Admin: 12/29/21 20:47 Dose: 100 mg Documented by: Hydralazine HCl (Hydralazine 20 Mg/Ml Vial) 0 mg IV Q2HP PRN PRN Reason: Hypertension Vasopressin 10 unit/ Dextrose 50.5 mls @ 12 mls/hr IV DAILYP PRN; Protocol PRN Reason: DIALYSIS RELATED HYPOTENSION REMDESIVIR 100 mg/ Sodium (Chloride) 250 mls @ 500 mls/hr IV Q24H [facility] Stop: 12/31/21 10:29 Last Infusion: 12/29/21 13:17 Dose: Infused Documented by: Ceftriaxone Sodium 2 gm/ (Dextrose) 50 mls @ 100 mls/hr IV Q24H [facility]; Protocol Last Infusion: 12/29/21 13:09 Dose: Infused Documented by: Azithromycin 500 mg/ Dextrose 250 mls @ 250 mls/hr IV Q24H [facility]; Protocol Stop: 12/31/21 10:59 Last Infusion: 12/29/21 15:28 Dose: Infused Documented by: Labetalol HCl (Labetalol 5 Mg/Ml Ml) 0 mg IV Q3H PRN PRN Reason: Hypertension Lisinopril (Lisinopril 20 Mg Tablet) 20 mg PO DAILY [facility] Last Admin: 12/29/21 07:54 Dose: 20 mg Documented by: Metoprolol Succinate (Metoprolol Succinate 50 Mg Tab.Xl.24h) 100 mg PO DAILY [facility] Last Admin: 12/29/21 07:54 Dose: 100 mg Documented by: Ondansetron HCl (Ondansetron 4 Mg/2 Ml Vial) 4 mg IV Q4HP PRN PRN Reason: Nausea And Vomiting Last Admin: 12/28/21 03:10 Dose: 4 mg Documented by: Oxycodone/Acetaminophen (Oxycodone/Apap 5/325mg Tablet) 1 tab PO Q4HP PRN; Protocol PRN Reason: Per Pain Protocol Sevelamer Carbonate (Sevelamer 800 Mg Tablet) 800 mg PO TIDCC [facility] Last Admin: 12/29/21 17:23 Dose: 800 mg Documented by: A/P Narrative A/P Narrative: A: *Acute hypoxic respiratory failure: 2/2 covid vs fluid overload -turned to room air today yesterday -perhaps this is more related to volume overload than covid pna given clinical course > NRB @outside facility and room air here over the 24 hours *COVID ?PNA: *ESRD: *Anemia, chronic *HTN/HLD: *Obesity: bmi 30 P: -Dexa/Rem d/c -Empiric abx, f/u wbc/pct -Wean O2 as able -Proning/mobilization/OOB to chair -f/u crp -HD per Nephro -cont home BP meds -ppx: Heparin Plan of Treatment: Home with follow up at [facility] [address] [phone] fax. Time Spent With Patient Time: Total time spent is greater than 50% in coordination of care (as documented) at patient's floor/unit and/or counseling patient:
[2021-12-30] MEDS: SEVELAMER 800 MG TABLET PO SCH (08:25)
[2021-12-30] MEDS: CALCIUM ACETATE 667 MG CAPSULE PO SCH (08:25)
[2021-12-30] MEDS: DEXAMETHASONE 4 MG TABLET PO SCH (08:25)
[2021-12-30] MEDS: HEPARIN 5,000 UNIT/ML VIAL SQ SCH (08:26)
[2021-12-30] MEDS: METOPROLOL SUCCINATE 50 MG TAB.XL.24H PO SCH (08:26)
--- NOTE | 2021-12-30 08:56 | Nephrology Progress Note ---
SUBJECTIVE Subjective Patient information: Note initiated : 12/30/21 at 8:49 am Service Date, if different from initiated Date: [] Patient: Tyler Harrington 56 y/o M admitted on 12/28/21 for Nausea/Vomiting, missed Chemodialysis. Chief Complaint: [SOB] Principal diagnosis: Hypoxemic resp failure in HD pt with SARs-CV2 and fluid overload Interval history: This patient was admitted early in the morning of December 28, 2020 in transfer from [facility]. As outlined previously he was seen in the emergency room and had an high O2 requirement of 10 L/min to maintain an O2 sat above 90%. On room air he was in the low 70% range. He is a dialysis patient Monday and Monday and at plan to go to dialysis but instead was In the emergency room. Chest x-ray looks like bilateral infiltrates consistent with pulmonary edema or an infection process. BNP was markedly elevated but his procalcitonin was may be 2-5 fold elevated. Bad to the confusion his COVID PCR was positive on December 28 prior to transfer and he was given paxlovid. He was transferred to critical access hospital that could provide dialysis provided that a working access was in place and this was the case. He received some remdesivir, and IL- 6 antagonist and per government approved treatment program. Aggressive ultrafiltration and lowering his weight to 77 kg his O2 sats improved markedly he was breathing on room air and in my opinion he recovered weight too quickly per years average dialysis patient that may have had COVID-pneumonia so I think this was pulmonary edema from fluid overload. He has MR and an echo cardiogram was done but not read prior to discharge this morning. Post HD 12/30/2021 Pertinent ROS: N/A Additional PMFSH (Level 3 Only): n/A Constitutional Vitals: Vital Signs Temp Pulse Resp BP Pulse Ox 37.2 C 68 18 138/65 95 12/30/21 05:43 12/30/21 05:43 12/30/21 05:43 12/30/21 05:43 12/30/21 05:43 Period Temp Pulse Resp BP Sys/Saavedra Pulse Ox Last 24 Hr 36.9 C-37.4 C 58-72 12-23 107-138/45-67 88-97 Intake and Output 12/29/21 12/30/21 12/30/21 21:59 05:59 13:59 Intake Total 820 480 Output Total 75 Balance 820 405 Weight 78.109 kg Intake & Output: Intake & Output 12/29/21 12/30/21 12/30/21 21:59 05:59 13:59 Intake Total 820 480 Output Total 75 Balance 820 405 Weight 78.109 kg Intake: IV 250 Zithromax 500 mg In Dextrose 5% 250 in Water 250 ml @ 250 mls/hr IV Q24H DELANO Rx#:[id number] Oral 570 480 Output: Void Amount 75 Other: Meal snack Percent of Meal Consumed 100% Urine Appearance Clear Urine Color Dark Yellow General appearance: cooperative and no acute distress Exam: Much improved Off O2 Neck Neck exam: Present normal inspection Respiratory Respiratory exam: Present rhonchi; Absent rales Cardiovascular Cardiovascular exam: Present systolic murmur (II/ HSM c/w MR); Absent gallop Extremities Exam Extremities exam: Absent pedal edema or tenderness Neurological Exam Neurological exam: Present alert, CN II-XII intact and oriented X3 Psychiatric Psychiatric exam: Present normal affect Skin Skin exam: Present dry and normal color A/P Assessment and plan (1) ESRD (end stage renal disease) on dialysis: Status: Chronic Comment: looks better and decreased Aa gradient with 4 liter Uf Check ESR, CRP, procal, proBNP and CXR post HD (2) Pneumonia due to SARS-associated coronavirus: Status: Acute Comment: Given the rapidity of his improvement I think this is a fluid overload issue and not an infectious issue. proBNP was elevated 40 fold while his inflammatory biomarkers were only elevated 5-10 fold. Plan Next HD as outpatient Isolation date started NEW DRY WEIGHT 77 kg and challenge Follow up the Echo once read Narrative A/P Narrative: Hypoxemic Resp failure 2/2 volume overload >>> Covid PNA Set and challenge dry weight starting at 77 kg Plan of Treatment: Home with follow up at [facility] [phone] fax. Time Spent With Patient Time: Total time spent is greater than 50% in coordination of care (as documented) at patient's floor/unit and/or counseling patient: Total time spent with greater than 50% in coordination of care (as documented) at patient's floor/unit and/or counseling patient:: 25 - 35 minutes Critical Care Time: No
[2021-12-30] MEDS: cefTRIAXone 2 GM in DEXTROSE 5% IN WATER 50 ML IV SCH (09:07)
[2021-12-30] MEDS: LISINOPRIL 20 MG TABLET PO SCH (09:38)
[2021-12-30] MEDS: amLODIPine 10 MG TABLET PO SCH (09:38)
[2021-12-30] MEDS: AZITHROMYCIN 500 MG in DEXTROSE 5% IN WATER 250 ML IV SCH (09:38)
[2021-12-30] MEDS: hydrALAZINE 25 MG TABLET PO SCH (10:29)
== END 2021-12-30 13:05 | disposition home or self-care (01) | DRG 177 ==
LOC: ICU 12-28 02:17
PROVIDERS: ADMIT Internal Medicine; ATTEND Internal Medicine